=== PATIENT | female | born 1955 | race Caucasian/White ===

== ENCOUNTER 2019-11-25 20:21 | Emergency (ER) | payer BC ==
[~2019-11-25] VITALS: Ht 160 cm; Wt 63.5 kg
[2019-11-25] MEDS ORDERED: LISINOPRIL10 MG PO (20:50)
[2019-11-25] MEDS ORDERED: NORTRIPTYLINE H75 MG PO (20:51)
[2019-11-25] MEDS ORDERED: GABAPENTIN300 MG PO (20:51)
[2019-11-25] MEDS ORDERED: CLONAZEPAM0.5 MG PO (20:52)
[2019-11-25] MEDS ORDERED: TURMERIC500 M2 PO (20:53)
[2019-11-25] MEDS ORDERED: ONCE DAILY1 EACH PO (20:54)
[2019-11-25] MEDS ORDERED: LISINOPRIL-HCT1 EAC1 PO (20:55)
== END 2019-11-26 | disposition home or self-care (01) ==
LOC: ED 20:21
DX: H10.32 Unspecified acute conjunctivitis, left eye (principal); I10 Essential (primary) hypertension; Z79.899 Other long term (current) drug therapy
CPT/HCPCS: 99283